=== PATIENT | male | born 1985 | race Caucasian/White ===

== ENCOUNTER 2020-09-04 18:17 | Emergency (ER) | payer BC, SELFPAY ==
[2020-09-04 18:52] VITALS: BP 121/85; PULSE 85; RESP 20; TEMP 36.2; O2SAT 100
[2020-09-04 20:30] VITALS: BP 125/65; PULSE 82; RESP 16; TEMP 36.9; O2SAT 100
--- NOTE | 2020-09-04 20:35 | PC.NURSE ---
Pt presents to ED with no specific complaints. States I just want my liver, my vitals and labs checked. I know my medication levels will be off because I having been taking it correctly. I'm just irritated but I don't think I need to be in the ER. Pt denies homicidal and suicidal ideations. presented to ED and states pt has been weaning himself off of his valproic acid and lamotrigine. also states that pt is not homicidal or suicidal. Pt stated I feel guilty for coming in and taking up people's time . Pt noted to be irritable and passive aggressive but is otherwise calm and cooperative. Pt resting on cart in its lowest position with call button and personal items within reach. Pt advised to press call button for assistance.
--- NOTE | 2020-09-04 20:47 | ECG_ITS ---
Measurements Intervals [place] Rate: 77 P: 71 [place]: 146 QRS: 73 QRSD: 90 T: 71 QT: 353 QTc: 400 Interpretive Statements SINUS RHYTHM WITH SINUS ARRHYTHMIA BASELINE ARTIFACT- I, II, III, V4-V5 BORDERLINE ECG Electronically Signed On 09-05-2020 6:58:41 CDT by Hawk Reagan D.O.
--- NOTE | 2020-09-04 21:03 | ED.GENADULT ---
HPI - General Adult General Chief complaint: Psychiatric Symptoms Stated complaint: bipolar, not si or hi, wants seen Time Seen by Provider: 09/04/20 20:39 History of Present Illness HPI narrative: Patient a 34-year-old gentleman who presents the emergency department with chief complaint of manic episode. The patient reports he has history of bipolar disorder and decided to start weaning himself off of his Depakote and is currently off of it. The patient states that he has had some racing thoughts has been having pressured speech denies suicidal or homicidal ideation. Patient states he spoke to his psychiatrist office who recommended that he start back on his Depakote. The patient came to the emergency department today because he wanted to have his labs checked and wanted to talk to somebody as he is not sure completely if he needs to be in a hospital he prefer to start back on his medications as an outpatient but would like to be seen for a another opinion. PMFSH Social History Social History Substance use type: marijuana Comments Past medical history significant for bipolar disorder Social history patient denies illicit drug use does use marijuana Exam Narrative: Exam Narrative: GENERAL: Well-appearing, well-nourished, and in no acute distress. HEAD: Normocephalic, atraumatic. EYES: PERRLA and EOMI. ENT: Nares clear, no rhinorrhea or epistaxis. Mucous membranes moist. NECK: Supple. CHEST: Clear to auscultation. No respiratory distress. HEART: Regular rate and rhythm. No murmur heard. Normal peripheral pulses. ABDOMEN: Soft, nontender, nondistended, normal active bowel sounds. EXTREMITIES: Normal range of motion. No edema. SKIN: Warm, dry, no rash. NEURO: No focal deficits. Alert and oriented x3. PSYCH: Normal mood and affect. Denies suicidal or homicidal ideation Course Vital Signs Vital signs: Vital Signs Temperature 36.2 C L 09/04/20 18:52 Pulse Rate 85 09/04/20 18:52 Respiratory Rate 20 09/04/20 18:52 Blood Pressure 121/85 09/04/20 18:52 Pulse Oximetry 100 09/04/20 18:52 Temperature 36.9 C 09/04/20 20:30 Pulse Rate 82 09/04/20 21:59 Respiratory Rate 18 09/04/20 21:59 Blood Pressure 126/80 09/04/20 21:59 Pulse Oximetry 100 09/04/20 21:59 Medical Decision Making Vital Signs Vital Signs: Vital Signs Temperature 36.2 C L 09/04/20 18:52 Pulse Rate 85 09/04/20 18:52 Respiratory Rate 20 09/04/20 18:52 Blood Pressure 121/85 09/04/20 18:52 Pulse Oximetry 100 09/04/20 18:52 Temperature 36.9 C 09/04/20 20:30 Pulse Rate 82 09/04/20 21:59 Respiratory Rate 18 09/04/20 21:59 Blood Pressure 126/80 09/04/20 21:59 Pulse Oximetry 100 09/04/20 21:59 Lab Data Result diagrams: 09/04/20 21:18 09/04/20 21:17 Labs: Lab Results 09/04/20 09/04/20 09/04/20 Range/Units 21:16 21:17 21:18 WBC 9.1 (4.5-10.0) K/mm3 RBC 5.11 (4.6-6.20) M/mm3 Hgb 16.3 (14.0-18.0) g/dL Hct 45.2 (42.0-52.0) % MCV 88.5 (80-100) fl MCH 31.9 (26-34) pg MCHC 36.1 H (32-36) g/dl RDW 12.8 (11.5-14.5) % Plt Count 205 (150-375) k/mm3 MPV 9.7 (7.4-10.4) fl Immature Gran % (Auto) 0.2 (0-0.5) % Neut % (Auto) 75.3 H (45.5-73.1) % Lymph % (Auto) 15.1 L (18.3-44.2) % Bradford % (Auto) 8.1 (2.6-8.5) % Eos % (Auto) 1.0 (0-4.4) % Baso % (Auto) 0.3 (0.2-1.2) % Lymph # (Auto) 1.37 (0.9-3.2) K/mm3 Bradford # (Auto) 0.7 H (0.1-0.6) K/mm3 Eos # (Auto) 0.1 (0-0.3) K/mm3 Baso # (Auto) 0.0 (0.0-0.1) K/mm3 Abs Immat Gran (auto) 0.02 (0.00-0.031) K/mm3 Absolute Neuts (auto) 6.8 H (1.3-6.7) K/mm3 Absolute Nucleated RBC 0.0 (0.0-0.012) K/mm3 Nucleated RBC % 0.0 (0.0-0.2) % Sodium 137 (137-145) mmol/L Potassium 3.8 (3.4-5.0) mmol/L Chloride 101 (98-107) mmol/L Carbon Dioxide 29 (22-30) mmol/L Anion Gap 7 L (8-16) mmol/L BUN 23 H
[2020-09-04 21:24] LABS: Basophils Percent Auto 0.3 % (0.2-1.2); Eosinophils Absolute Auto 0.1 K/mm3 (0-0.3); Hematocrit 45.2 % (42.0-52.0); Hemoglobin 16.3 g/dL (14.0-18.0); Immature Granulocyte Absolute 0.02 K/mm3 (0.00-0.031); Immature Granulocyte Percent A 0.2 % (0-0.5); Lymphocytes Absolute Auto 1.37 K/mm3 (0.9-3.2); Lymphocytes Percent Auto 15.1 % (18.3-44.2); Mean Corpuscular HGB Conc 36.1 g/dl (32-36); Mean Corpuscular Hemoglobin 31.9 pg (26-34); Mean Corpuscular Volume 88.5 fl (80-100); Mean Platelet Volume 9.7 fl (7.4-10.4); Monocytes Absolute Auto 0.7 K/mm3 (0.1-0.6); Monocytes Percent Auto 8.1 % (2.6-8.5); Neutrophils Absolute Auto 6.8 K/mm3 (1.3-6.7); Neutrophils Percent Auto 75.3 % (45.5-73.1); Platelet Count Result 205 k/mm3 (150-375); Red Blood Count 5.11 M/mm3 (4.6-6.20); Red Cell Distribution Width 12.8 % (11.5-14.5); White Blood Count 9.1 K/mm3 (4.5-10.0)
[2020-09-04 21:34] LABS: Alanine Aminotransferase 41 U/L (4-50); Albumin Level 4.7 g/dL (3.5-5.1); Alkaline Phosphatase 59 U/L (38-126); Anion Gap 7 mmol/L (8-16); Aspartate Amino Transferase 58 U/L (17-59); Blood Urea Nitrogen 23 mg/dL (9-20); Calcium 9.4 mg/dL (8.4-10.2); Carbon Dioxide 29 mmol/L (22-30); Chloride 101 mmol/L (98-107); Estimated CRCL calculation 91 ml/min; Estimated Glomerular Filt Rate > 60; Glucose 86 mg/dL (75-110); Potassium 3.8 mmol/L (3.4-5.0); Sodium 137 mmol/L (137-145)
[2020-09-04 21:52] LABS: Acetaminophen < 10 ug/mL (10-30); Ethanol < 10 mg/dL (<10); Salicylate < 1.0 mg/dL (2-20)
[2020-09-04 21:59] VITALS: BP 126/80; PULSE 82; RESP 18; O2SAT 100
--- NOTE | 2020-09-04 21:59 | PC.NURSE ---
Pt resting on cart in supine position and remains alert and oriented. Pt continues to voices that his is irritated and persistently questioning his if they can just leave and go home; says no. Pt provided lunch box and lindsay mist. HOB lowered for comfort. Vitals remain stable and pt and advised to press call button for assistance.
[2020-09-04 22:05] LABS: Thyroid Stimulating Hormone 0.852 uIU/mL (0.465-4.680)
[2020-09-04 22:14] LABS: Valproic Acid 15.7 ug/mL (50-120)
[2020-09-04 23:14] LABS: Barbiturate Screen Urine Negative (Negative); Benzodiazepines Screen Urine Negative (Negative)
[2020-09-04 23:16] LABS: Amphetamine Screen Urine Negative (Negative); Cannabinoid Screen Urine Positive (Negative); Cocaine Screen Urine Negative (Negative); Methadone Screen Urine Negative (Negative); Opiate Screen Urine Negative (Negative)
[2020-09-04 23:17] LABS: Phencyclidine Screen Urine Negative (Negative)
[2020-09-04 23:43] LABS: Add Urine Microscopic? YES; Appearance Urine Clear (Clear); Bilirubin Urine Negative (Negative); Blood Urine Negative (Negative); Color Urine Yellow (Yellow); Glucose Urine UA Negative (Negative); Ketones Urine 1+ mg/dL (Negative); Leukocyte Esterase Ur Negative LEU/UL (Negative); Mucus Urine Rare /lpf; Nitrate Urine Negative (Negative); Protein Urine 1+ mg/dL (Negative); RBC Urine 0-2 /hpf (0-2); Specific Grav Ur 1.021 (1.001-1.035); Urobilinogen Urine Negative mg/dL (<2.0); WBC Urine 0-3 /hpf
--- NOTE | 2020-09-05 00:33 | PC.NURSE ---
social sciences research scientist presented to bedside for evaluation.
[2020-09-05 01:33] VITALS: BP 119/80; PULSE 83; RESP 18; TEMP 37.2; O2SAT 98
== END 2020-09-05 01:35 | disposition home or self-care (01) ==
PROVIDERS: Emergency Provider Emergency Medicine
DX: F31.11 Bipolar disorder, current episode manic without psychotic features, mild (principal); R94.31 Abnormal electrocardiogram [ECG] [EKG]
CPT/HCPCS: 36415; 80053; 80164; 80307; 81001; 84443; 85025; 93005; 99284

== ENCOUNTER 2020-09-08 13:42 | Emergency (ER) | payer BC, SELFPAY ==
[2020-09-08 13:43] VITALS: BP 128/92; PULSE 100; RESP 17; TEMP 36.7; O2SAT 98
--- NOTE | 2020-09-08 14:08 | PC.NURSE ---
Patient reports to this RN, his Yissel Lovett told him several times that she wanted to end her life. He then reports that she then left their house shortly afterward and he caught her at her fathers home alone. He states that she is now at their home alone and he fears that she may take the opportunity alone to harm herself. Patient's father is at bedside and states that his does have a history of self harm. He reports that he spoke to the 's mother and she said she took the grand daughter to her biological father's house and his was at their home. EDP and charge nurse notified. Christopher RIVERA was called for a welfare check on his Yissel. The patient provided [address], [place] as their home address. EDP was called and took the report, they state they will send out a officer for a welfare check.
[2020-09-08] MEDS: LORazepam INJ (*CRX) 2 MG/ML VIAL 0.5 MG IM (14:17)
--- NOTE | 2020-09-08 14:41 | ED.PSYCH ---
HPI - Psych General Chief Complaint: Psychiatric Symptoms <CHRISTIANE Waller - Last Filed: 09/11/20 08:15> Stated Complaint: ?HALLUCINATIONS <CHRISTIANE Waller - Last Filed: 09/11/20 08:15> Time Seen by Provider: 09/08/20 14:03 <CHRISTIANE Waller - Last Filed: 09/11/20 08:15> Source: patient <CHRISTIANE Waller - Last Filed: 09/11/20 08:15> Mode of arrival: ambulatory <CHRISTIANE Waller - Last Filed: 09/11/20 08:15> Limitations: no limitations <CHRISTIANE Waller - Last Filed: 09/11/20 08:15> History of Present Illness HPI Narrative: Patient is a 34 year old male who presents by EMS. Patient reports father called EMS out of concern. Per patient, he has a history of bipolar and has been taking medications correctly. Patient was seen for manic episode last week. Patient tearful. He reports increased anxiety. He denies homicidal ideation or suicidal ideation. Father continues at bedside. Alter and oriented x 43, however, patient is noted to have flight of ideas. <CHRISTIANE Waller - Last Filed: 09/11/20 08:15> MD complaint: other (flight of ideas, manic) <CHRISTIANE Waller - Last Filed: 09/11/20 08:15> Related Data Home Medications: Home Medications Medication Instructions Recorded Confirmed lamotrigine 150 mg PO DAILY 09/08/20 09/09/20 valproic acid 1,500 mg PO DAILY 09/08/20 09/09/20 <CHRISTIANE Waller - Last Filed: 09/11/20 08:15> Allergies/Adverse Reactions: Allergies Allergy/AdvReac Type Severity Reaction Status Date / Time No Known Allergies Allergy Verified 09/08/20 13:58 <CHRISTIANE Waller - Last Filed: 09/11/20 08:15> Review of Systems Review of Systems: Narrative: CONSTITUTIONAL: Denies fever, chills, or sweats. EYES: Denies visual changes, redness, or discharge. ENT: Denies rhinorrhea, congestion, sore throat, or otalgia. CARDIOVASCULAR: Denies chest pain, palpitations, or edema. RESPIRATORY: Denies cough or dyspnea. GASTROINTESTINAL: Denies abdominal pain, nausea, vomiting, or diarrhea. GENITOURINARY: Denies dysuria or hematuria. SKIN: Denies rash or itching. MUSCULOSKELETAL: Denies back pain, joint pain, or myalgia. NEUROLOGIC: Denies headache, numbness, dizziness, or weakness. PSYCHIATRIC: Reports anxiety. <CHRISTIANE Waller - Last Filed: 09/11/20 08:15> PMFSH Past Medical History Medical History: Medical History (Updated 09/11/20 @ 00:00 by Taylro Leung) Bipolar disorder <CHRISTIANE Waller - Last Filed: 09/11/20 08:15> Surgical History Surgical History: Surgical History (Updated 09/08/20 @ 14:46 by CHRISTIANE Waller) No significant past surgical history <CHRISTIANE Waller - Last Filed: 09/11/20 08:15> Family History Family History: Family History (Updated 09/08/20 @ 14:47 by CHRISTIANE Waller) Other No significant family history <CHRISTIANE Waller - Last Filed: 09/11/20 08:15> Social History Social History: Social History (Updated 09/08/20 @ 14:48 by CHRISTIANE Waller) Smoking status: Current every day smoker Alcohol intake: current Alcohol use details: occasional Substance use: current Substance use type: marijuana and prescription drug Living arrangements: with family <CHRISTIANE Waller - Last Filed: 09/11/20 08:15> Comments At the time of signature, I have reviewed and agree with nursing past medical, surgical, social, and family history unless otherwise noted. Please see nursing chart for further information. There is no relevant family history pertinent to the presenting complaint. <CHRISTIANE Waller - Last Filed: 09/11/20 08:15> Exam Narrative: Exam Narrative: GENERAL: Well-appearing, well-nourished, and in no acute distress. HEAD: Normocephalic, atraumatic. EYES: EOMI. No redness or drainage. Conjunctiva are normal. ENT: Mucous membranes pink and moist. CHEST: No respiratory distr
[2020-09-08 14:46] LABS: Basophils Percent Auto 0.6 % (0.2-1.2); Eosinophils Absolute Auto 0.1 K/mm3 (0-0.3); Eosinophils Percent Auto 0.8 % (0-4.4); Hematocrit 45.5 % (42.0-52.0); Hemoglobin 16.5 g/dL (14.0-18.0); Immature Granulocyte Absolute 0.02 K/mm3 (0.00-0.031); Immature Granulocyte Percent A 0.3 % (0-0.5); Lymphocytes Absolute Auto 1.07 K/mm3 (0.9-3.2); Lymphocytes Percent Auto 14.9 % (18.3-44.2); Mean Corpuscular HGB Conc 36.3 g/dl (32-36); Mean Corpuscular Hemoglobin 32.4 pg (26-34); Mean Corpuscular Volume 89.4 fl (80-100); Mean Platelet Volume 9.7 fl (7.4-10.4); Monocytes Absolute Auto 0.6 K/mm3 (0.1-0.6); Monocytes Percent Auto 7.6 % (2.6-8.5); Neutrophils Absolute Auto 5.5 K/mm3 (1.3-6.7); Neutrophils Percent Auto 75.8 % (45.5-73.1); Platelet Count Result 207 k/mm3 (150-375); Red Blood Count 5.09 M/mm3 (4.6-6.20); Red Cell Distribution Width 12.7 % (11.5-14.5); White Blood Count 7.2 K/mm3 (4.5-10.0)
[2020-09-08 14:56] LABS: Ethanol < 10 mg/dL (<10)
[2020-09-08 14:57] LABS: Alanine Aminotransferase 41 U/L (4-50); Albumin Level 4.8 g/dL (3.5-5.1); Alkaline Phosphatase 60 U/L (38-126); Anion Gap 8 mmol/L (8-16); Aspartate Amino Transferase 51 U/L (17-59); Bilirubin,Total 0.7 mg/dL (0.2-1.3); Blood Urea Nitrogen 28 mg/dL (9-20); Calcium 9.4 mg/dL (8.4-10.2); Carbon Dioxide 29 mmol/L (22-30); Chloride 105 mmol/L (98-107); Estimated Glomerular Filt Rate > 60; Glucose 87 mg/dL (75-110); Sodium 142 mmol/L (137-145)
[2020-09-08 15:07] LABS: Add Urine Microscopic? YES; Appearance Urine Clear (Clear); Bilirubin Urine Negative (Negative); Blood Urine Negative (Negative); Color Urine Yellow (Yellow); Glucose Urine UA Negative (Negative); Ketones Urine 1+ mg/dL (Negative); Leukocyte Esterase Ur Negative LEU/UL (Negative); Mucus Urine Rare /lpf; Nitrate Urine Negative (Negative); Protein Urine 1+ mg/dL (Negative); RBC Urine 0-2 /hpf (0-2); Specific Grav Ur 1.029 (1.001-1.035); Urobilinogen Urine Negative mg/dL (<2.0); WBC Urine 0-3 /hpf
[2020-09-08 15:11] LABS: Amphetamine Screen Urine Negative (Negative); Barbiturate Screen Urine Negative (Negative); Benzodiazepines Screen Urine Negative (Negative); Cannabinoid Screen Urine Positive (Negative); Cocaine Screen Urine Negative (Negative); Methadone Screen Urine Negative (Negative); Opiate Screen Urine Negative (Negative); Phencyclidine Screen Urine Negative (Negative)
[2020-09-08 15:57] VITALS: BP 119/80; PULSE 90; RESP 16; O2SAT 100
[2020-09-08 17:23] VITALS: BP 119/76; PULSE 92; RESP 18; O2SAT 100
--- NOTE | 2020-09-09 03:38 | PC.NURSE ---
pt up walking around ER. pt asked to return to his room x 2 by charge nurse, pt did not comply, Rn followed pt around ER until pt returned to room, RN informed pt that he could not look into other rooms for privacy for other pts, pt did not respond.
--- NOTE | 2020-09-09 06:36 | PC.NURSE ---
Spoke to Julianna in lab this am about pt's COVID swab going on the first run today.
[2020-09-09 07:15] VITALS: BP 117/75; PULSE 91; RESP 18; O2SAT 100
--- NOTE | 2020-09-09 07:15 | PC.NURSE ---
this RN into pts room. Introduced myself and asked pt if he needed anything. Pt stats i need information on my . I informed pt that per RN Neel, his was on her way. Pt states ok I will take something to eat now . Pt denies any SI/HI for this RN .
--- NOTE | 2020-09-09 09:16 | PC.NURSE ---
pt was using bathroom between marli 6 & 7. Pt found in rm 7, while the room was empty. Redirected pt back to his room. Dr Fofana requested sitter with pt to keep him from wandering in and out of other pt rooms.
--- NOTE | 2020-09-09 09:16 | PC.NURSE ---
Radha from [facility] called to inform us that pt does have a bed as of right now, pending COVID results. Radha requests that we call [facility] with results at [phone]
[2020-09-09] MEDS: NICOTINE (*PBKC) 21 MG PATCH 1 PATCH TRANSDERM (09:28)
[2020-09-09 18:00] VITALS: BP 119/79; PULSE 57; RESP 16; TEMP 37.2; O2SAT 100
[2020-09-09 19:04] LABS: SARS-CoV-2 RNA PCR Negative
--- NOTE | 2020-09-09 21:34 | PC.NURSE ---
RN has tired to fax pts negative COVID test multiple times over the past hour with no answer. Will attempt to try again with different fax number to [facility]. Presley at [facility] aware of negative results.
--- NOTE | 2020-09-09 21:56 | PC.NURSE ---
Spoke with [facility] and they received pts negative COVID result. He is accepted they are just waiting for a bed placement. They will call us back with a room number when they have one.
--- NOTE | 2020-09-09 22:12 | PC.NURSE ---
Pt walked out of his room and laid down on the floor in the hallway, refused to move and started dry heaving. When staff tried to help him stand up and went limp and refused to move. Pts bed moved out of room and mattress placed on floor. Pt helped safely onto bed. He threw the pillow and blanket off and moved himself off the mattress onto the floor. Pt stated if he couldnt walk out the door then he would just lay there.
--- NOTE | 2020-09-09 22:18 | PC.NURSE ---
[facility] callled with bed and RN called for nurse report.
[2020-09-09 23:26] VITALS: BP 139/87; PULSE 75; RESP 18; TEMP 37; O2SAT 97
[2020-09-10 01:54] VITALS: BP 114/76; PULSE 72; RESP 16; TEMP 36.7; O2SAT 99
== END 2020-09-10 01:58 ==
PROVIDERS: Nurse Practitioner; Emergency Provider General Practice
DX: F31.9 Bipolar disorder, unspecified (principal); Z20.822 Contact with and (suspected) exposure to COVID-19
CPT/HCPCS: 36415; 80053; 80307; 81001; 84443; 85025; 96372; 99285; A9270; C9803; J2060; U0003; U0005